=== PATIENT | female | born 1940 | race Caucasian/White ===

== ENCOUNTER 2016-06-13 23:41 | Inpatient (IN) | payer MEDICARE, OTHER ==
[~2016-06-13] VITALS: Ht 170.2 cm; Wt 78.9 kg
[~2016-06-13 23:41] MED LIST: ALLO300T PO; CELE200C PO; CHOL20003 PO; CHOL4POW3 PO; ESOM40SU PO; METO100T5 PO; OXYB5TAB7 PO; PREG75CA PO; SIMV20TA PO; TELM1TAB3 PO
[2016-06-13] MEDS ORDERED: PLEASE ENTER HEIGHT AND WEIGHT MC SCH (23:45)
[2016-06-14] MEDS ORDERED: DILTIAZEM 125 MG in SODIUM CHLORIDE 0.9% 100 ML IV PRN
[2016-06-14] MEDS ORDERED: ONDANSETRON 2MG/ML, 2ML ONE (00:11)
[2016-06-14] MEDS ORDERED: ONDANSETRON 2MG/ML, 2ML IVPush ONE (00:30)
[2016-06-14 00:57] LABS: BLOOD UREA NITROGEN 27 mg/dL (7-18)
[2016-06-14 01:01] LABS: IS PT STATUS REG ER OR PRE ER? YES
[2016-06-14] MEDS ORDERED: ENOXAPARIN 80 MG/0.8 ML SQ ONE (01:30)
[2016-06-14] MEDS ORDERED: ENOXAPARIN 40 MG/0.4 ML SQ SCH (02:00)
[2016-06-14] MEDS ORDERED: TRAZODONE 50MG TABLET PO PRN (02:00)
[2016-06-14] MEDS ORDERED: LABETALOL 5MG/ML 40ML VIAL IV PRN (02:00)
[2016-06-14] MEDS ORDERED: BISACODYL 10 MG SUPP PR PRN (02:00)
[2016-06-14] MEDS ORDERED: DOCUSATE 100 MG CAPSULE PO PRN (02:00)
[2016-06-14] MEDS ORDERED: POLYETHYLENE GLYCOL 17 GM PACKET PO PRN (02:00)
[2016-06-14] MEDS: ONDANSETRON 2MG/ML, 2ML IVPush PRN ×2 (03:05→10:16)
[2016-06-14 03:20] VITALS: BP 109/75
[2016-06-14] MEDS: ATORVASTATIN 80 MG TABLET PO SCH ×2 (03:59→20:52)
[2016-06-14] MEDS: NS + 20MEQ KCL 1,000 ML IV SCH ×2 (04:35→12:41)
[2016-06-14] MEDS ORDERED: METOPROLOL TARTRATE 25 MG TABLET PO SCH (06:00)
[2016-06-14] MEDS: METOPROLOL TARTRATE 25 MG TABLET PO SCH ×2 (06:08→18:14)
[2016-06-14 06:38] LABS: BLOOD UREA NITROGEN 26 mg/dL (7-18)
[2016-06-14 06:48] LABS: IS PT STATUS REG ER OR PRE ER? NO
[2016-06-14] MEDS: CHOLECALCIFEROL 1,000 UNIT TABLET PO SCH ×2 (09:24→20:53)
[2016-06-14] MEDS: VALSARTAN 160 MG TABLET PO SCH (09:24)
[2016-06-14] MEDS: PREGABALIN 75 MG CAPSULE PO SCH ×2 (09:24→20:52)
[2016-06-14] MEDS: CHOLESTYRAMINE LIGHT 4GM PACKET PO SCH (09:24)
[2016-06-14] MEDS: HYDROCHLOROTHIAZIDE 12.5 MG CAPSULE PO SCH (09:24)
[2016-06-14] MEDS: ALLOPURINOL 300 MG TABLET PO SCH (09:24)
[2016-06-14] MEDS: PANTOPROZOLE 40MG TABLET PO SCH ×2 (09:24→20:53)
[2016-06-14 09:30] VITALS: BP 146/72
[2016-06-14] MEDS ORDERED: REGADENOSON 0.4 MG/5 ML SYRINGE ONE (09:38)
[2016-06-14 11:42] LABS: IS PT STATUS REG ER OR PRE ER? NO
[2016-06-14 13:30] VITALS: BP 152/80
[2016-06-14] MEDS: PROMETHAZINE 25 MG/ML, 1ML IM PRN ×2 (13:33→20:45)
[2016-06-14 13:40] VITALS: BP 99/66
[2016-06-14] MEDS ORDERED: POTASSIUM CHLORIDE 40 MEQ in SODIUM CHLORIDE 0.9% 500 ML IV ONE (14:30)
[2016-06-14 17:13] LABS: IS PT STATUS REG ER OR PRE ER? NO
[2016-06-14 19:31] VITALS: BP 169/80
[2016-06-15] MEDS: NS + 20MEQ KCL 1,000 ML IV SCH ×4 (01:26→21:20)
[2016-06-15 02:35] VITALS: BP 166/78
[2016-06-15 05:46] LABS: BLOOD UREA NITROGEN 15 mg/dL (7-18)
[2016-06-15] MEDS: METOPROLOL TARTRATE 25 MG TABLET PO SCH ×2 (06:28→18:00)
[2016-06-15 06:29] VITALS: BP 144/86
[2016-06-15 07:50] VITALS: BP 158/77
[2016-06-15] MEDS: PROMETHAZINE 25 MG/ML, 1ML IM PRN ×2 (08:32→16:22)
[2016-06-15] MEDS: VALSARTAN 160 MG TABLET PO SCH (08:35)
[2016-06-15] MEDS: ALLOPURINOL 300 MG TABLET PO SCH (09:00)
[2016-06-15] MEDS: HYDROCHLOROTHIAZIDE 12.5 MG CAPSULE PO SCH (09:00)
[2016-06-15] MEDS: CHOLECALCIFEROL 1,000 UNIT TABLET PO SCH (09:00)
[2016-06-15] MEDS: PREGABALIN 75 MG CAPSULE PO SCH ×2 (09:00→20:23)
[2016-06-15] MEDS: PANTOPROZOLE 40MG TABLET PO SCH ×2 (09:00→20:24)
[2016-06-15] MEDS: CHOLESTYRAMINE LIGHT 4GM PACKET PO SCH (09:00)
[2016-06-15] MEDS: ONDANSETRON 2MG/ML, 2ML IVPush PRN (11:12)
[2016-06-15] MEDS: ENOXAPARIN 40 MG/0.4 ML SQ SCH (11:13)
[2016-06-15 11:36] LABS: BLOOD UREA NITROGEN 13 mg/dL (7-18)
[2016-06-15 11:40] LABS: ASPARTATE AMINO TRANSFERASE 15 U/L (15-37)
[2016-06-15 13:50] VITALS: BP 145/89
[2016-06-15 19:10] VITALS: BP 173/92
[2016-06-15] MEDS: ATORVASTATIN 80 MG TABLET PO SCH (20:23)
[2016-06-16 01:42] VITALS: BP 154/88
[2016-06-16] MEDS: NS + 20MEQ KCL 1,000 ML IV SCH ×3 (05:29→21:23)
[2016-06-16] MEDS: METOPROLOL TARTRATE 25 MG TABLET PO SCH ×2 (06:00→18:10)
[2016-06-16 07:48] VITALS: BP 151/79
[2016-06-16] MEDS ORDERED: ENALAPRILAT 1.25 MG/ML, 2ML IV PRN (08:00)
[2016-06-16] MEDS: CHOLESTYRAMINE LIGHT 4GM PACKET PO SCH (09:00)
[2016-06-16] MEDS: VALSARTAN 160 MG TABLET PO SCH (09:00)
[2016-06-16] MEDS: HYDROCHLOROTHIAZIDE 12.5 MG CAPSULE PO SCH (09:00)
[2016-06-16] MEDS: PANTOPROZOLE 40MG TABLET PO SCH ×2 (09:00→21:24)
[2016-06-16] MEDS: PREGABALIN 75 MG CAPSULE PO SCH ×2 (09:00→21:23)
[2016-06-16] MEDS: PANTOPRAZOLE 40 MG IV IVPush SCH (09:16)
[2016-06-16 11:03] LABS: ASPARTATE AMINO TRANSFERASE 15 U/L (15-37); BLOOD UREA NITROGEN 12 mg/dL (7-18)
[2016-06-16] MEDS: ENOXAPARIN 40 MG/0.4 ML SQ SCH ×2 (11:27→21:13)
[2016-06-16 14:15] VITALS: BP 153/84
[2016-06-16 18:10] VITALS: BP 148/90
[2016-06-16 19:50] VITALS: BP 144/82
[2016-06-16] MEDS: ATORVASTATIN 80 MG TABLET PO SCH ×2 (21:00→21:23)
[2016-06-17 01:17] VITALS: BP 144/89
[2016-06-17] MEDS: NS + 20MEQ KCL 1,000 ML IV SCH ×2 (03:58→09:40)
[2016-06-17] MEDS: METOPROLOL TARTRATE 25 MG TABLET PO SCH ×2 (05:54→17:38)
[2016-06-17 08:00] VITALS: BP 177/94
[2016-06-17] MEDS ORDERED: FENTANYL PF 100 MCG/2ML ONE (08:42)
[2016-06-17] MEDS ORDERED: MIDAZOLAM 1 MG/ML, 5ML ONE (08:42)
[2016-06-17] MEDS: VALSARTAN 160 MG TABLET PO SCH (11:29)
[2016-06-17] MEDS: PANTOPRAZOLE 40 MG IV IVPush SCH (11:29)
[2016-06-17] MEDS: PREGABALIN 75 MG CAPSULE PO SCH ×2 (11:30→19:56)
[2016-06-17] MEDS: PANTOPROZOLE 40MG TABLET PO SCH (11:30)
[2016-06-17] MEDS: HYDROCHLOROTHIAZIDE 12.5 MG CAPSULE PO SCH (11:30)
[2016-06-17] MEDS: CHOLESTYRAMINE LIGHT 4GM PACKET PO SCH (11:30)
[2016-06-17 12:49] VITALS: BP 150/81
[2016-06-17 18:29] VITALS: BP 173/105
[2016-06-17] MEDS: ATORVASTATIN 80 MG TABLET PO SCH (19:56)
[2016-06-18] MEDS ORDERED: NS + 20MEQ KCL 1,000 ML IV SCH (01:58)
[2016-06-18 02:37] VITALS: BP 156/86
[2016-06-18 06:04] VITALS: BP 161/82
[2016-06-18] MEDS: METOPROLOL TARTRATE 25 MG TABLET PO SCH (06:11)
[2016-06-18] MEDS ORDERED: PANTOPROZOLE 40MG TABLET PO SCH (07:30)
[2016-06-18] MEDS: VALSARTAN 160 MG TABLET PO SCH (08:16)
[2016-06-18] MEDS: HYDROCHLOROTHIAZIDE 12.5 MG CAPSULE PO SCH (08:16)
[2016-06-18] MEDS ORDERED: REGADENOSON 0.4 MG/5 ML SYRINGE ONE (09:02)
[2016-06-18] MEDS: PREGABALIN 75 MG CAPSULE PO SCH (11:11)
[2016-06-18] MEDS: ENOXAPARIN 40 MG/0.4 ML SQ SCH (11:11)
[2016-06-18] MEDS: CHOLESTYRAMINE LIGHT 4GM PACKET PO SCH (11:11)
[2016-06-18 12:28] VITALS: BP 146/84
[2016-06-18] MEDS ORDERED: METO5TAB2 PO (14:21)
[2016-06-18] MEDS ORDERED: CHOL239. PO (14:21)
== END 2016-06-18 16:20 | disposition home or self-care (01) | DRG 309 ==
LOC: ED 06-14 01:07 → EDIP 06-14 01:22 → 5SO 06-14 02:33 → DCLOUNGE 06-18 16:00
PROVIDERS: ADMIT Internal Medicine; ATTEND Internal Medicine
PROC: 0DC68ZZ Extirpation of Matter from Stomach, Via Natural or Artificial Opening Endoscopic (ICD-10-PCS; principal; 2016-06-17 09:00)
DX: I48.0 Paroxysmal atrial fibrillation (principal); E87.1 Hypo-osmolality and hyponatremia; N39.0 Urinary tract infection, site not specified; K52.9 Noninfective gastroenteritis and colitis, unspecified; E87.6 Hypokalemia; R74.8 Abnormal levels of other serum enzymes; M19.90 Unspecified osteoarthritis, unspecified site; M79.7 Fibromyalgia; K21.9 Gastro-esophageal reflux disease without esophagitis; E03.9 Hypothyroidism, unspecified; E78.00 Pure hypercholesterolemia, unspecified; E78.5 Hyperlipidemia, unspecified; E86.0 Dehydration; I10 Essential (primary) hypertension; I44.7 Left bundle-branch block, unspecified; M10.9 Gout, unspecified; Z96.649 Presence of unspecified artificial hip joint; Z66 Do not resuscitate; Z83.3 Family history of diabetes mellitus; Z87.891 Personal history of nicotine dependence; Z90.710 Acquired absence of both cervix and uterus; Z90.49 Acquired absence of other specified parts of digestive tract; Z89.429 Acquired absence of other toe(s), unspecified side; Z98.51 Tubal ligation status; Z88.6 Allergy status to analgesic agent; Z88.3 Allergy status to other anti-infective agents; Z88.5 Allergy status to narcotic agent; Z88.0 Allergy status to penicillin; Z88.8 Allergy status to other drugs, medicaments and biological substances
CPT/HCPCS: 36415; 71010; 74000; 76700; 78452; 80048; 80053; 81003; 82040; 82247; 82248; 83690; 83735; 84439; 84443; 84484; 85025; 93005; 93017; 93306; 96365; 96366; 96375; J1650; J2250; J2405; J2550; J2785; J3010; J3480; A9502; C9113; C9898; J7040

== ENCOUNTER 2016-08-26 07:23 | Day surgery (SDC) | payer MEDICARE, OTHER ==
[2016-08-20 12:48] VITALS: BP 130/62
[~2016-08-26] VITALS: Ht 172.7 cm; Wt 76.0 kg
[~2016-08-26 07:23] MED LIST changes: +ALLO100T64 PO; +CHOL2000 PO; -CHOL20003 PO; +CHOL239. PO; +CHOL500015 PO; +LACT1CAP35 PO; +METO5TAB2 PO; +TRAM1TAB6 PO
[2016-08-26] MEDS ORDERED: LACTATED RINGERS 1,000 ML IV SCH (08:21)
[2016-08-26] MEDS ORDERED: FENTANYL PF 250 MCG/5ML ONE (08:22)
[2016-08-26] MEDS ORDERED: [UNRECOGNIZED DRUG - REMARK] PO (08:28)
[2016-08-26] MEDS ORDERED: LIDOCAINE 1%, 2ML SQ PRN (08:30)
[2016-08-26 08:48] VITALS: BP 130/62
[2016-08-26] MEDS ORDERED: FENTANYL PF 100 MCG/2ML ONE (09:24)
[2016-08-26] MEDS ORDERED: BUPIVACAINE/PF 0.25% ONE (09:32)
[2016-08-26] MEDS ORDERED: VANCOMYCIN 1,000 MG ONE (09:32)
[2016-08-26] MEDS ORDERED: EPINEPHRINE 1 MG/ML, 1ML ONE (09:32)
[2016-08-26] MEDS ORDERED: GENTAMICIN 80 MG/2 ML ONE (09:32)
[2016-08-26] MEDS ORDERED: THROMBIN 5,000 UNIT VIAL TP ONE (09:32)
[2016-08-26] MEDS ORDERED: NEOMY/POLYMYXIN B GU IRR. 1 ML IRRIG ONE (09:33)
[2016-08-26] MEDS ORDERED: CEFAZOLIN 1,000 MG ONE (09:55)
[2016-08-26] MEDS ORDERED: PROPOFOL 10 MG/ML, 20ML ONE (09:55)
[2016-08-26] MEDS ORDERED: DEXAMETHASONE 4 MG/ML, 1ML ONE (09:55)
[2016-08-26] MEDS ORDERED: ONDANSETRON 2MG/ML, 2ML ONE (09:55)
[2016-08-26] MEDS ORDERED: METOCLOPRAMIDE 5 MG/ML, 2ML IV PRN (10:00)
[2016-08-26] MEDS ORDERED: hydrALAzine 20 MG/ML, 1ML IV PRN (10:00)
[2016-08-26] MEDS ORDERED: ONDANSETRON 2MG/ML, 2ML IVPush PRN (10:00)
[2016-08-26] MEDS ORDERED: PROMETHAZINE 25 MG/ML, 1ML IV PRN (10:00)
[2016-08-26] MEDS ORDERED: LABETALOL 5MG/ML, 20ML IV PRN (10:00)
[2016-08-26] MEDS ORDERED: ACETAMINOPHEN 325 MG TABLET PO PRN (10:00)
[2016-08-26] MEDS ORDERED: morphine SULFATE 10 MG/ML, 1ML IV PRN (10:00)
[2016-08-26] MEDS ORDERED: ACETAMINOPHEN 325 MG TABLET PO ONE (14:00)
[2016-08-26] MEDS ORDERED: ACETAMINOPHEN 325 MG TABLET ONE (14:01)
== END 2016-08-26 15:10 ==
LOC: OR 07:23
PROVIDERS: ATTEND Urology
DX: N39.3 Stress incontinence (female) (male) (principal); I10 Essential (primary) hypertension; F15.90 Other stimulant use, unspecified, uncomplicated; K21.9 Gastro-esophageal reflux disease without esophagitis; Z87.39 Personal history of other diseases of the musculoskeletal system and connective tissue; Z87.440 Personal history of urinary (tract) infections; Z90.49 Acquired absence of other specified parts of digestive tract; Z98.890 Other specified postprocedural states; Z98.49 Cataract extraction status, unspecified eye; Z96.649 Presence of unspecified artificial hip joint; Z88.6 Allergy status to analgesic agent; Z88.5 Allergy status to narcotic agent; Z88.8 Allergy status to other drugs, medicaments and biological substances
CPT/HCPCS: 57288; 81001; 93005; C1769; C1771; J0171; J0690; J1100; J1580; J2405; J2704; J3010; J3370; J3490; J7120

== ENCOUNTER 2017-08-26 05:04 | Inpatient (IN) | payer MEDICARE, OTHER ==
[~2017-08-26] VITALS: Ht 172.7 cm; Wt 83.7 kg
[~2017-08-26 05:04] MED LIST changes: +ASCO10004 PO; +CBD TP; +CYAN500T2 PO; +HYDR25TA6 PO; +LIDO35.46 TP; +METH1TAB21 PO; +NITR50CA11 PO; +PANT20TA3 PO; +TRET15GE TP; +[UNRECOGNIZED DRUG - REMARK] PO
[2017-08-26] MEDS ORDERED: LACTATED RINGERS 1,000 ML IV SCH (05:57)
[2017-08-26] MEDS ORDERED: VANCOMYCIN PER PHARMACY MC ONE (05:57)
[2017-08-26] MEDS ORDERED: VANCOMYCIN 1,400 MG in SODIUM CHLORIDE 0.9% 250 ML IV ONE (06:00)
[2017-08-26] MEDS ORDERED: CLINDAMYCIN 150 MG/ML, 6ML ONE (06:02)
[2017-08-26 06:22] VITALS: BP 160/54
[2017-08-26] MEDS ORDERED: FENTANYL PF 100 MCG/2ML ONE ×2 (06:24→09:34)
[2017-08-26] MEDS ORDERED: MIDAZOLAM 1 MG/ML, 2ML ONE (06:24)
[2017-08-26] MEDS ORDERED: PREGABALIN 150 MG CAPSULE PO ONE (06:30)
[2017-08-26] MEDS ORDERED: ACETAMINOPHEN 500 MG TABLET PO ONE (06:30)
[2017-08-26] MEDS ORDERED: ONDANSETRON ODT 8 MG PO ONE (06:30)
[2017-08-26] MEDS ORDERED: PHENYLEPHRINE 10 MG/ML ONE (06:49)
[2017-08-26] MEDS ORDERED: BISACODYL 10 MG SUPP PR PRN (07:00)
[2017-08-26] MEDS ORDERED: SENNA/DOCUSATE TABLET PO PRN (07:00)
[2017-08-26] MEDS ORDERED: DIPHENHYDRAMINE 25 MG CAPSULE PO PRN (07:00)
[2017-08-26] MEDS ORDERED: MAGNESIUM HYDROXIDE 8%, 30ML UDC PO PRN (07:00)
[2017-08-26] MEDS ORDERED: ACETAMINOPHEN 325 MG TABLET PO PRN (07:00)
[2017-08-26] MEDS ORDERED: TRAMADOL HCL PO PRN ×2 (07:00→11:27)
[2017-08-26] MEDS ORDERED: ALUMINUM/MAG/SIMETHICONE 30 ML UDC PO PRN (07:00)
[2017-08-26] MEDS ORDERED: PROMETHAZINE 25 MG/ML, 1ML IM PRN (07:00)
[2017-08-26] MEDS ORDERED: LIDOCAINE TP PRN (07:00)
[2017-08-26] MEDS ORDERED: ACETAMINOPHEN PO PRN ×2 (07:00→11:27)
[2017-08-26] MEDS ORDERED: ONDANSETRON 2MG/ML, 2ML IV PRN (07:00)
[2017-08-26] MEDS ORDERED: EPHEDRINE 50 MG/ML, 1ML IM PRN (07:30)
[2017-08-26] MEDS ORDERED: MIDAZOLAM 1 MG/ML, 2ML IV PRN (07:30)
[2017-08-26] MEDS ORDERED: ALBUTEROL/IPRATROPIUM 2.5MG/0.5MG, 3 ML NPPB PRN (07:30)
[2017-08-26] MEDS ORDERED: SCOPOLAMINE PATCH, 1.5MG PATCH.TD72 TD PRN (07:30)
[2017-08-26] MEDS ORDERED: METOCLOPRAMIDE 5 MG/ML, 2ML IV PRN (07:30)
[2017-08-26] MEDS ORDERED: METOPROLOL 1 MG/ML, 5ML IV PRN (07:30)
[2017-08-26] MEDS ORDERED: hydrALAzine 20 MG/ML, 1ML IV PRN (07:30)
[2017-08-26] MEDS ORDERED: PROMETHAZINE 25 MG/ML, 1ML IV PRN (07:30)
[2017-08-26] MEDS ORDERED: LIDOCAINE-MPF 2% ,5ML ONE (07:39)
[2017-08-26] MEDS ORDERED: CEFAZOLIN 1,000 MG ONE (07:39)
[2017-08-26] MEDS ORDERED: PROPOFOL 10 MG/ML, 20ML ONE (07:39)
[2017-08-26] MEDS ORDERED: LIDOCAINE GEL 2%, 5ML ONE ×2 (07:39→07:54)
[2017-08-26] MEDS ORDERED: BUPIVACAINE/PF 0.5% ONE (07:39)
[2017-08-26] MEDS ORDERED: GLYCOPYRROLATE 0.2MG/1ML, 5ML ONE (07:39)
[2017-08-26] MEDS ORDERED: SUCCINYLCHOLINE 20 MG/ML, 10ML ONE (07:39)
[2017-08-26] MEDS ORDERED: NEOSTIGMINE 1 MG/ML, 10ML ONE (07:39)
[2017-08-26] MEDS ORDERED: ONDANSETRON 2MG/ML, 2ML ONE (07:39)
[2017-08-26] MEDS ORDERED: DEXAMETHASONE 4 MG/ML, 1ML ONE (07:39)
[2017-08-26] MEDS ORDERED: ROCURONIUM 10MG/ML,5ML ONE (07:39)
[2017-08-26] MEDS: DOCUSATE 100 MG CAPSULE PO SCH ×2 (09:00→21:00)
[2017-08-26] MEDS: METHENAMINE HIPPURATE 1 GM TABLET PO SCH ×3 (09:00→21:00)
[2017-08-26] MEDS: FENTANYL PF 100 MCG/2ML IV PRN ×2 (09:35→09:59)
[2017-08-26 10:42] VITALS: BP 119/75
[2017-08-26] MEDS ORDERED: NITROFURANTOIN MACROCRYSTAL 50 MG PO SCH (11:00)
[2017-08-26] MEDS: PANTOPRAZOLE 20MG TABLET PO SCH (11:15)
[2017-08-26] MEDS: CHOLESTYRAMINE LIGHT 4GM PACKET PO SCH ×2 (11:17→21:00)
[2017-08-26] MEDS: ALLOPURINOL 100 MG TABLET PO SCH (11:18)
[2017-08-26] MEDS: HYDROCHLOROTHIAZIDE 25 MG TABLET PO SCH (11:18)
[2017-08-26] MEDS: CHOLECALCIFEROL 1,000 UNIT TABLET PO SCH (11:18)
[2017-08-26] MEDS: PREGABALIN 75 MG CAPSULE PO SCH ×3 (11:18→22:11)
[2017-08-26] MEDS: METOPROLOL SUCCINATE 100 MG TAB.ER.24H PO SCH (11:21)
[2017-08-26] MEDS: D5%-0.45% NACL 1,000 ML IV SCH ×2 (12:30→22:30)
[2017-08-26 13:24] VITALS: BP 106/69
[2017-08-26] MEDS: NITROFURANTOIN 50 MG CAPSULE PO SCH ×2 (16:27→22:11)
[2017-08-26] MEDS: CEFAZOLIN PMX 2GM/50ML 50 ML IVPB SCH (16:27)
[2017-08-26 20:56] VITALS: BP 150/79
[2017-08-26 20:57] VITALS: BP 109/63
[2017-08-26] MEDS ORDERED: TRETINOIN TP SCH (21:00)
[2017-08-26] MEDS ORDERED: SIMVASTATIN 20 MG TABLET PO SCH (21:00)
[2017-08-27] MEDS: CEFAZOLIN PMX 2GM/50ML 50 ML IVPB SCH ×2 (00:15→07:56)
[2017-08-27 00:34] VITALS: BP 127/76
[2017-08-27 04:29] VITALS: BP 113/69
[2017-08-27] MEDS: NITROFURANTOIN 50 MG CAPSULE PO SCH (05:38)
[2017-08-27 07:09] VITALS: BP 134/69
[2017-08-27] MEDS: D5%-0.45% NACL 1,000 ML IV SCH (07:56)
[2017-08-27] MEDS: METHENAMINE HIPPURATE 1 GM TABLET PO SCH (07:58)
[2017-08-27] MEDS: DOCUSATE 100 MG CAPSULE PO SCH (07:58)
[2017-08-27] MEDS: HYDROCHLOROTHIAZIDE 25 MG TABLET PO SCH (07:59)
[2017-08-27] MEDS: PANTOPRAZOLE 20MG TABLET PO SCH (07:59)
[2017-08-27] MEDS: PREGABALIN 75 MG CAPSULE PO SCH (07:59)
[2017-08-27] MEDS: ALLOPURINOL 100 MG TABLET PO SCH (08:00)
[2017-08-27] MEDS: CHOLESTYRAMINE LIGHT 4GM PACKET PO SCH (08:00)
[2017-08-27] MEDS: METOPROLOL SUCCINATE 100 MG TAB.ER.24H PO SCH (08:00)
[2017-08-27] MEDS: CHOLECALCIFEROL 1,000 UNIT TABLET PO SCH (08:01)
== END 2017-08-27 11:00 | disposition home or self-care (01) | DRG 483 ==
LOC: ORIP 05:04 → 4NOR 10:50 → DCLOUNGE 08-27 10:41
PROVIDERS: ADMIT Orthopaedic Surgery; ATTEND Orthopaedic Surgery
PROC: 0LS40ZZ Reposition Left Upper Arm Tendon, Open Approach (ICD-10-PCS; 2017-08-26)
PROC: 3E0T3BZ Introduction of Anesthetic Agent into Peripheral Nerves and Plexi, Percutaneous Approach (ICD-10-PCS; 2017-08-26)
PROC: 0RRK00Z Replacement of Left Shoulder Joint with Reverse Ball and Socket Synthetic Substitute, Open Approach (ICD-10-PCS; principal; 2017-08-26 07:00)
DX: M19.012 Primary osteoarthritis, left shoulder (principal); M75.22 Bicipital tendinitis, left shoulder
CPT/HCPCS: C1713; C1776; J0690; J1100; J2250; J2405; J2704; J2710; J3010; J3370; J3490; Q0162; C1769; J0330; J2370; J7050; J7120

== ENCOUNTER 2020-10-21 19:12 | Inpatient (IN) | payer MEDICARE, OTHER ==
[~2020-10-21] VITALS: Ht 172.7 cm; Wt 65.0 kg
[~2020-10-21 19:12] MED LIST changes: +ASCO100018 PO; -ASCO10004 PO; -CYAN500T2 PO; +CYAN500T7 PO; +OXYB5TAB10 PO; -OXYB5TAB7 PO; -PANT20TA3 PO; +PANT20TA4 PO
[2020-10-21] MEDS ORDERED: SODIUM CHLORIDE FLUSH 10ML SYR IVF ONE (19:30)
[2020-10-21] MEDS ORDERED: SODIUM CHLORIDE 0.9% 1,000ML IVBOLUS ONE (19:30)
[2020-10-21] MEDS ORDERED: PLEASE ENTER HEIGHT AND WEIGHT MC SCH (19:30)
[2020-10-21] MEDS ORDERED: ONDANSETRON 2MG/ML, 2ML ONE (19:36)
[2020-10-21 20:19] LABS: MICROSCOPIC INDICATED
--- NOTE | 2020-10-21 20:31 | NUR ---
LAB AT BEDSIDE DRAWING BLOOD
[2020-10-21 20:33] LABS: MEAN CORPUSCULAR HEMOGLOBIN 32.7 pg (27.0-34.8); MEAN CORPUSCULAR HGB CONC 32.2 g/dL (32.4-35.8); MEAN PLATELET VOLUME 9.2 fL (7.4-10.4); PLATELET COUNT 141 x10^3/uL (130-400); RED BLOOD COUNT 4.56 x10^6/uL (3.82-5.3); RED CELL DISTRIBUTION WIDTH 15.6 % (9.6-15.2)
[2020-10-21 20:47] LABS: ALANINE AMINOTRANSFERASE 39 U/L (12-78); ANION GAP 9 mmol/L (5-15); CALCIUM 8.7 mg/dL (8.5-10.1); CHLORIDE 110 mmol/L (98-107); CREATININE 1.69 mg/dL (0.55-1.02)
[2020-10-21 20:50] LABS: ALKALINE PHOSPHATASE 105 U/L (45-117); BILIRUBIN,TOTAL 1.1 mg/dL (0.2-1.0); TOTAL PROTEIN 6.8 g/dL (6.4-8.2)
[2020-10-21 20:51] LABS: BAND#(MANUAL) 2.08 x10^3/uL; BANDS%(MANUAL) 13 % (0-7); LYMPH#(MANUAL) 1.44 x10^3/uL (1-3.4); LYMPHS% (MANUAL) 9 % (22-44); METAMYELOCYTES# (MANUAL) 0.16 x10^3/uL (0-0); METAMYELOCYTES% (MANUAL) 1 % (0-1); MONOS#(MANUAL) 0.16 x10^3/uL (0.3-2.7); MONOS% (MANUAL) 1 % (2-9); SEG#(MANUAL) 12.16 x10^3/uL (1.8-6.8); SEGS% (MANUAL) 76 % (42-75)
[2020-10-21 20:52] LABS: <PLATELET ESTIMATE> DECREASED; <RBC MORPHOLOGY> NORMAL; LARGE PLATELETS 1+; PMNS WITH VACUOLES 1+
--- NOTE | 2020-10-21 21:00 | NUR ---
NOTIFIED MD OF PT ABDOMINAL PAIN AND ABDOMINAL FIRMNESS. CT ORDERED.
[2020-10-21] MEDS ORDERED: ACETAMINOPHEN 650 MG SUPP PR ONE (21:30)
[2020-10-21] MEDS ORDERED: CEFTRIAXONE 1,000 MG in DEXTROSE 5% 50 ML IVPB ONE (21:30)
[2020-10-21] MEDS ORDERED: ACETAMINOPHEN 650 MG SUPP ONE (21:31)
--- NOTE | 2020-10-21 22:08 | NUR ---
PT TO CT AT THIS TIME.
[2020-10-21] MEDS ORDERED: BISACODYL 10 MG SUPP ONE (23:00)
[2020-10-21] MEDS ORDERED: ONDANSETRON ODT 4 MG PO PRN (23:00)
[2020-10-21] MEDS ORDERED: ACETAMINOPHEN 325 MG TABLET PO PRN (23:00)
[2020-10-21] MEDS ORDERED: ONDANSETRON 2MG/ML, 2ML IVPush PRN (23:00)
[2020-10-21] MEDS ORDERED: SODIUM CHLORIDE 0.9% 1,000 ML IV SCH (23:00)
[2020-10-21] MEDS ORDERED: FAMOTIDINE 20 MG/2 ML IVPush SCH (23:00)
[2020-10-21] MEDS ORDERED: ENALAPRILAT 1.25 MG/ML, 2ML IVPush PRN (23:00)
[2020-10-21] MEDS ORDERED: BISACODYL 10 MG SUPP PR ONE (23:00)
[2020-10-21] MEDS ORDERED: MELATONIN 5 MG TABLET PO PRN (23:00)
[2020-10-22 00:15] VITALS: BP 97/70
[2020-10-22 02:42] VITALS: BP 103/67
[2020-10-22 06:04] LABS: CHLORIDE 111 mmol/L (98-107)
[2020-10-22 06:09] LABS: ANION GAP 12 mmol/L (5-15); CALCIUM 8.7 mg/dL (8.5-10.1); CREATININE 1.94 mg/dL (0.55-1.02)
[2020-10-22 06:54] LABS: MEAN CORPUSCULAR HEMOGLOBIN 32.4 pg (27.0-34.8); MEAN CORPUSCULAR HGB CONC 31.7 g/dL (32.4-35.8); MEAN PLATELET VOLUME 9.7 fL (7.4-10.4); PLATELET COUNT 163 x10^3/uL (130-400); RED BLOOD COUNT 5.01 x10^6/uL (3.82-5.3); RED CELL DISTRIBUTION WIDTH 15.7 % (9.6-15.2)
[2020-10-22] MEDS ORDERED: LACTATED RINGERS 1,000 ML IVBOLUS ONE (07:30)
[2020-10-22 07:49] LABS: BAND#(MANUAL) 2.69 x10^3/uL; BANDS%(MANUAL) 23 % (0-7); LYMPH#(MANUAL) 0.47 x10^3/uL (1-3.4); LYMPHS% (MANUAL) 4 % (22-44); MONOS% (MANUAL) 6 % (2-9); REACTIVE LYMPHS # (MANUAL) 0.23 x10^3/uL (0-0); REACTIVE LYMPHS % (MANUAL) 2 % (0-0); SEG#(MANUAL) 7.61 x10^3/uL (1.8-6.8); SEGS% (MANUAL) 65 % (42-75)
[2020-10-22 07:50] LABS: <PLATELET ESTIMATE> ADEQUATE; <PLT MORPHOLOGY> NORMAL PLT MORPH
[2020-10-22] MEDS ORDERED: VANCOMYCIN 1,300 MG in SODIUM CHLORIDE 0.9% 250 ML IV SCH (08:00)
[2020-10-22] MEDS ORDERED: VANCOMYCIN PER PHARMACY MC PRN (08:00)
[2020-10-22] MEDS ORDERED: ACETAMINOPHEN 650 MG SUPP PR PRN (08:00)
[2020-10-22] MEDS ORDERED: METRONIDAZOLE PMX 500MG/100ML 100 ML IV SCH ×2 (08:00→09:00)
[2020-10-22] MEDS ORDERED: MEROPENEM 500 MG in SODIUM CHLORIDE 0.9% 100 ML IV SCH (08:00)
[2020-10-22] MEDS ORDERED: PHARMACOKINETIC MONITORING MC PRN (08:30)
[2020-10-22] MEDS ORDERED: SODIUM BICARB 8.4%, 50ML SYRINGE ONE (08:45)
[2020-10-22] MEDS ORDERED: ALLOPURINOL 100 MG TABLET PO SCH (09:00)
[2020-10-22] MEDS ORDERED: VASOPRESSIN 20 UNIT in SODIUM CHLORIDE 0.9% 99 ML IV PRN (09:00)
[2020-10-22] MEDS ORDERED: METOPROLOL SUCCINATE 100 MG TAB.ER.24H PO SCH (09:00)
[2020-10-22] MEDS ORDERED: PREGABALIN 75 MG CAPSULE PO SCH (09:00)
[2020-10-22] MEDS ORDERED: NOREPINEPHRINE 8 MG in SODIUM CHLORIDE 0.9% 242 ML IV PRN (09:00)
[2020-10-22 09:01] LABS: MEAN CORPUSCULAR HEMOGLOBIN 32.6 pg (27.0-34.8); MEAN CORPUSCULAR HGB CONC 31.6 g/dL (32.4-35.8); MEAN PLATELET VOLUME 9.7 fL (7.4-10.4); PLATELET COUNT 158 x10^3/uL (130-400); RED BLOOD COUNT 4.61 x10^6/uL (3.82-5.3)
[2020-10-22 09:09] LABS: ALANINE AMINOTRANSFERASE 38 U/L (12-78); ALBUMIN 2.3 g/dL (3.4-5.0); ANION GAP 14 mmol/L (5-15); CHLORIDE 115 mmol/L (98-107); CREATININE 2.43 mg/dL (0.55-1.02)
[2020-10-22 09:14] LABS: ALKALINE PHOSPHATASE 112 U/L (45-117); BILIRUBIN,TOTAL 1.3 mg/dL (0.2-1.0); TOTAL PROTEIN 5.1 g/dL (6.4-8.2); TROPONIN I < 0.015 ng/mL (0.000-0.045)
[2020-10-22] MEDS ORDERED: SODIUM BICARBONATE 8.4% 150 MEQ in DEXTROSE 5% 1,000 ML IV SCH (09:30)
[2020-10-22 10:01] LABS: <PLATELET ESTIMATE> ADEQUATE; <PLT MORPHOLOGY> NORMAL PLT MORPH; ANISOCYTOSIS 1+; BAND#(MANUAL) 2.86 x10^3/uL; BANDS%(MANUAL) 24 % (0-7); LYMPH#(MANUAL) 0.83 x10^3/uL (1-3.4); LYMPHS% (MANUAL) 7 % (22-44); METAMYELOCYTES# (MANUAL) 0.71 x10^3/uL (0-0); METAMYELOCYTES% (MANUAL) 6 % (0-1); MONOS#(MANUAL) 0.95 x10^3/uL (0.3-2.7); MONOS% (MANUAL) 8 % (2-9); SEG#(MANUAL) 6.55 x10^3/uL (1.8-6.8); SEGS% (MANUAL) 55 % (42-75)
[2020-10-22] MEDS ORDERED: FENTANYL PF 100 MCG/2ML ONE (10:41)
[2020-10-22] MEDS ORDERED: ROCURONIUM 10 MG/ML,10ML ONE (11:32)
[2020-10-22] MEDS ORDERED: EPINEPHRINE 1 MG/ML, 1ML ONE (11:32)
[2020-10-22] MEDS ORDERED: PHARMACY MAY ADJ FOR RENAL FX MC SCH (12:00)
[2020-10-22] MEDS ORDERED: DEXTROSE 4 GM TAB.CHEW PO PRN (12:00)
[2020-10-22] MEDS ORDERED: LIDOCAINE-MPF 1%, 2ML ENDO PRN (12:00)
[2020-10-22] MEDS ORDERED: DEXTROSE 50%, 50ML SYRINGE IVPush PRN (12:00)
[2020-10-22] MEDS ORDERED: GLUCAGON 1 MG IM PRN (12:00)
[2020-10-22] MEDS ORDERED: FENTANYL PF 1,000 MCG in SODIUM CHLORIDE 0.9% 80 ML IV PRN (12:00)
[2020-10-22] MEDS ORDERED: PROPOFOL 100 ML IV PRN (12:00)
[2020-10-22] MEDS ORDERED: MIDAZOLAM 1 MG/ML, 5ML ONE (12:12)
[2020-10-22] MEDS ORDERED: ETOMIDATE 20 MG/10 ML ONE (12:12)
[2020-10-22] MEDS ORDERED: PROPOFOL 10 MG/ML, 100ML IV ONE (12:12)
[2020-10-22] MEDS ORDERED: morphine SULFATE 10 MG/ML, 1ML IV ONE (13:00)
[2020-10-22] MEDS ORDERED: LORazepam 2 MG/ML, 1ML IVPush PRN (13:00)
[2020-10-22] MEDS ORDERED: MORPHINE SULFATE 4 MG/ML, 1ML IVPush PRN (13:00)
[2020-10-22] MEDS ORDERED: LORazepam 2 MG/ML, 1ML IV ONE (13:00)
[2020-10-22] MEDS ORDERED: SODIUM CHLORIDE FLUSH 10ML SYR IVF SCH (21:00)
[2020-10-22] MEDS ORDERED: SIMVASTATIN 20 MG TABLET PO SCH (21:00)
[2020-10-22] MEDS ORDERED: CEFTRIAXONE 1,000 MG in DEXTROSE 5% 50 ML IVPB SCH (23:30)
== END 2020-10-22 16:07 | DRG 871 ==
LOC: ED 21:52 → OBSVTOIN 22:51 → EDIP 22:51 → INTOOBSV 22:51 → 3N 10-22 00:18 → CCU 10-22 07:57
PROVIDERS: ADMIT Family Medicine; ATTEND Internal Medicine
PROC: 0T9B70Z Drainage of Bladder with Drainage Device, Via Natural or Artificial Opening (ICD-10-PCS; 2020-10-21)
PROC: 0BH17EZ Insertion of Endotracheal Airway into Trachea, Via Natural or Artificial Opening (ICD-10-PCS; 2020-10-22)
PROC: 02HV33Z Insertion of Infusion Device into Superior Vena Cava, Percutaneous Approach (ICD-10-PCS; 2020-10-22)
PROC: B548ZZA Ultrasonography of Superior Vena Cava, Guidance (ICD-10-PCS; 2020-10-22)
PROC: 5A1935Z Respiratory Ventilation, Less than 24 Consecutive Hours (ICD-10-PCS; principal; 2020-10-22 12:00)
DX: A41.9 Sepsis, unspecified organism (principal); R65.21 Severe sepsis with septic shock; N17.0 Acute kidney failure with tubular necrosis; G93.41 Metabolic encephalopathy; J96.01 Acute respiratory failure with hypoxia; K65.9 Peritonitis, unspecified; N39.0 Urinary tract infection, site not specified; E87.2 Acidosis; Z51.5 Encounter for palliative care; A05.9 Bacterial foodborne intoxication, unspecified; Z20.822 Contact with and (suspected) exposure to COVID-19; E03.9 Hypothyroidism, unspecified; E78.00 Pure hypercholesterolemia, unspecified; E78.5 Hyperlipidemia, unspecified; F12.90 Cannabis use, unspecified, uncomplicated; G89.29 Other chronic pain; Z66 Do not resuscitate; I10 Essential (primary) hypertension; I95.2 Hypotension due to drugs; K21.9 Gastro-esophageal reflux disease without esophagitis; K43.9 Ventral hernia without obstruction or gangrene; K59.00 Constipation, unspecified; M10.9 Gout, unspecified; I46.9 Cardiac arrest, cause unspecified; Z96.649 Presence of unspecified artificial hip joint; Z96.89 Presence of other specified functional implants; M79.7 Fibromyalgia; Z79.899 Other long term (current) drug therapy; Z82.49 Family history of ischemic heart disease and other diseases of the circulatory system; Z87.891 Personal history of nicotine dependence; Z90.49 Acquired absence of other specified parts of digestive tract; Z90.710 Acquired absence of both cervix and uterus; Z98.84 Bariatric surgery status; Z98.51 Tubal ligation status; Z88.5 Allergy status to narcotic agent; Z88.0 Allergy status to penicillin; Z88.6 Allergy status to analgesic agent
CPT/HCPCS: 36415; 36600; 71045; 74018; 74176; 80048; 80053; 81001; 82533; 82803; 82962; 83605; 83690; 83880; 84484; 85025; 87040; 87070; 87077; 87081; 87086; 87186; 87205; 87635; 93005; 94002; 99285; J0171; J0696; J2185; J2250; J2704; J3010; J3370; J7070; J2060; J2270; J7030; J7050; J7120